=== PATIENT | male | born 1985 | race Two or more races ===

== ENCOUNTER 2021-09-20 16:48 | Outpatient (REF) | payer OTHER, SELFPAY ==
[2021-09-20 17:34] LABS: Influenza A PCR NEGATIVE (Negative); Influenza B PCR NEGATIVE (Negative); Resp Syncy Virus RNA Qual PCR NEGATIVE (Negative); SARS COV2 PCR INHOUSE NEGATIVE (Negative)
== END 2021-09-20 16:49 | disposition home or self-care (01) ==
LOC: HO.LNP 16:48
PROVIDERS: Visit Provider Nurse Practitioner Family
DX: Z20.822 Contact with and (suspected) exposure to COVID-19 (principal); J02.9 Acute pharyngitis, unspecified
CPT/HCPCS: 0241U